=== PATIENT | female | born 1955 | race Caucasian/White ===

== ENCOUNTER → 2025-05-28 12:06 | Outpatient (REF) | payer MEDICARE, SELFPAY | LOC: MRI 3T 12:06 | PROVIDERS: ATTENDING PHYSICIAN Orthopaedic Surgery; FAMILY PHYSICIAN Family Medicine | DX: M54.16 Radiculopathy, lumbar region (principal) | CPT/HCPCS: 72148 ==

== ENCOUNTER → 2025-06-14 13:41 | Outpatient (REF) | payer MEDICARE, SELFPAY | LOC: RCS 13:41 | PROVIDERS: ATTENDING PHYSICIAN Physical Medicine & Rehabilitation; FAMILY PHYSICIAN Family Medicine | DX: Z01.818 Encounter for other preprocedural examination (principal) | CPT/HCPCS: 93005 ==